=== PATIENT | female | born 2005 | race Hispanic/Latino ===

== ENCOUNTER 2024-02-06 00:02 | Emergency (ER) | payer MEDICAID, OTHER ==
[~2024-02-06] VITALS: Ht 162.6 cm; Wt 100.2 kg
[2024-02-06 00:44] LABS: APPEARANCE,URINE CLEAR (CLEAR); BILIRUBIN,URINE NEGATIVE (NEGATIVE); COLOR,URINE YELLOW (YELLOW); GLUCOSE, URINE (UA) NEGATIVE (NEGATIVE); KETONES,URINE 5 mg/dL (NEGATIVE); LEUKOCYTE ESTERASE ,URINE NEGATIVE Leu/uL (NEGATIVE); NITRATE,URINE NEGATIVE (NEGATIVE); OCCULT BLOOD,URINE NEGATIVE (NEGATIVE); PH,URINE 5.5 (5.0-8.0); PROTEIN,URINE 10 mg/dL (NEGATIVE); UROBILINOGEN,URINE 0.2 mg/dL (0.2-1.0)
[2024-02-06 00:49] LABS: ADD UA MICROSCOPIC YES
[2024-02-06 00:53] LABS: MUCUS,URINE RARE LPF (None Seen); SQUAMOUS EPITHELIAL CELL,UR FEW /HPF (0-2); WBC,URINE 0-1 /HPF (0-1)
[2024-02-06 01:10] LABS: BASOPHILS # (AUTO) 0.02 K/uL (0.00-0.20); BASOPHILS % (AUTO) 0.3 % (0.0-5.0); EOSINOPHILS # (AUTO) 0.04 K/uL (0.00-0.70); EOSINOPHILS % (AUTO) 0.6 % (0.0-8.0); HEMATOCRIT 41.6 % (36-48); IMMATURE GRANULOCYTE ABSOLUTE 0.01 K/uL (0-1); LYMPHOCYTES # (AUTO) 2.1 K/uL (1.0-4.8); LYMPHOCYTES % (AUTO) 32.3 % (21.0-51.0); MEAN CORPUSCULAR HEMOGLOBIN 29.7 pg (27.0-33.0); MEAN CORPUSCULAR HGB CONC 33.7 g/dL (32.0-36.0); MEAN CORPUSCULAR VOLUME 88.3 fL (80-100); MONOCYTES # (AUTO) 0.6 K/uL (0.1-1.0); MONOCYTES % (AUTO) 8.7 % (3.0-13.0); NEUTROPHILS # (AUTO) 3.8 K/uL (1.8-7.7); NEUTROPHILS % (AUTO) 57.9 % (40.0-77.0); PLATELET COUNT (AUTO) 276 K/uL (130-400); RED BLOOD CELL COUNT(AUTO) 4.71 MIL/uL (4.00-5.50); RED CELL DISTRIBUTION WIDTH 12.5 % (11.0-15.5); WHITE BLOOD COUNT (AUTO) 6.5 K/uL (4.8-10.8)
[2024-02-06 01:20] LABS: CREATININE 0.9 mg/dL (0.5-1.0)
[2024-02-06 01:25] LABS: ALBUMIN 3.7 g/dL (3.5-5.0); BILIRUBIN,TOTAL 0.2 mg/dL (0.2-1.0); TOTAL PROTEIN, SERUM 7.8 g/dL (6.0-8.3)
[2024-02-06] MEDS ORDERED: IBUP-1493 PO (02:01)
[2024-02-06] MEDS ORDERED: DICY20TA2 PO (02:01)
[2024-02-06] MEDS ORDERED: OMEP40CA21 PO (02:01)
[2024-02-06 02:03] VITALS: BP 139/70; PULSE 66; RESP 17; O2SAT 98
== END 2024-02-06 02:13 | disposition home or self-care (01) ==
LOC: EDH 00:02
DX: K80.20 Calculus of gallbladder without cholecystitis without obstruction (principal); Z88.0 Allergy status to penicillin
CPT/HCPCS: 36415; 76705; 80053; 81001; 83690; 85025

== ENCOUNTER 2024-04-03 12:33 | Emergency (ER) | payer OTHER ==
[~2024-04-03] VITALS: Ht 167.6 cm; Wt 99.8 kg
[~2024-04-03 12:33] MED LIST: DICY20TA2 PO; IBUP-1493 PO; OMEP40CA21 PO
[2024-04-03 14:58] LABS: APPEARANCE,URINE CLOUDY (CLEAR); BILIRUBIN,URINE NEGATIVE (NEGATIVE); COLOR,URINE YELLOW (YELLOW); GLUCOSE, URINE (UA) NEGATIVE (NEGATIVE); KETONES,URINE NEGATIVE (NEGATIVE); LEUKOCYTE ESTERASE ,URINE 25 Leu/uL (NEGATIVE); NITRATE,URINE NEGATIVE (NEGATIVE); OCCULT BLOOD,URINE NEGATIVE (NEGATIVE); PH,URINE 5.5 (5.0-8.0); PROTEIN,URINE 20 mg/dL (NEGATIVE); UROBILINOGEN,URINE 0.2 mg/dL (0.2-1.0)
[2024-04-03 14:59] LABS: HCG,QUALITATIVE URINE NEGATIVE (NEGATIVE)
[2024-04-03 15:00] LABS: ADD UA MICROSCOPIC YES
[2024-04-03 15:03] LABS: BACTERIA,URINE RARE /HPF (None Seen); MUCUS,URINE FEW LPF (None Seen); SQUAMOUS EPITHELIAL CELL,UR MANY /HPF (0-2)
[2024-04-03 15:18] VITALS: BP 110/65; PULSE 70; RESP 18; O2SAT 98
[2024-04-03] MEDS: ORPHENADRINE CITRATE 30 MG/ML ML IM ONE (15:34)
[2024-04-03] MEDS: KETOROLAC 30MG VIAL (30MG/ML) IM ONE (15:34)
[2024-04-03] MEDS: TRIAMCINOLONE ACETONIDE 40 MG/ML 1ML VIAL IM ONE (15:35)
[2024-04-03] MEDS ORDERED: KETO10TA2 PO (16:00)
[2024-04-03] MEDS ORDERED: SULF1TAB42 PO (16:00)
== END 2024-04-03 16:26 | disposition home or self-care (01) ==
LOC: EDH 12:33
DX: S39.012A Strain of muscle, fascia and tendon of lower back, initial encounter (principal); N39.0 Urinary tract infection, site not specified; Z79.899 Other long term (current) drug therapy; Z88.0 Allergy status to penicillin; X58.XXXA Exposure to other specified factors, initial encounter; Y93.89 Activity, other specified; Y92.89 Other specified places as the place of occurrence of the external cause; Y99.8 Other external cause status
CPT/HCPCS: 99284; 87086; 81001; 81025; 96372 ×3; J3301; J1885; J2360

== ENCOUNTER 2024-09-15 21:28 | Emergency (ER) | payer SELFPAY ==
[~2024-09-15] VITALS: Ht 157.5 cm; Wt 104.3 kg
[~2024-09-15 21:28] MED LIST changes: +KETO10TA2 PO; +SULF1TAB42 PO
--- NOTE | 2024-09-15 21:32 | NUR ---
UA CUP PROVIDED
--- NOTE | 2024-09-15 21:41 | NUR ---
NOTIFIED ABIGAIL PARIKH OF PT NEED FOR ROOM
[2024-09-15 22:12] LABS: BASOPHILS # (AUTO) 0.04 K/uL (0.00-0.20); BASOPHILS % (AUTO) 0.4 % (0.0-5.0); EOSINOPHILS # (AUTO) 0.11 K/uL (0.00-0.70); HEMATOCRIT 40.5 % (36-48); IMMATURE GRANULOCYTE ABSOLUTE 0.04 K/uL (0-1); LYMPHOCYTES # (AUTO) 2.6 K/uL (1.0-4.8); LYMPHOCYTES % (AUTO) 24.6 % (21.0-51.0); MEAN CORPUSCULAR HEMOGLOBIN 28.6 pg (27.0-33.0); MEAN CORPUSCULAR HGB CONC 33.1 g/dL (32.0-36.0); MEAN CORPUSCULAR VOLUME 86.4 fL (80-100); MONOCYTES # (AUTO) 0.6 K/uL (0.1-1.0); MONOCYTES % (AUTO) 5.9 % (3.0-13.0); NEUTROPHILS # (AUTO) 7.2 K/uL (1.8-7.7); NEUTROPHILS % (AUTO) 67.7 % (40.0-77.0); PLATELET COUNT (AUTO) 292 K/uL (130-400); RED BLOOD CELL COUNT(AUTO) 4.69 MIL/uL (4.00-5.50); RED CELL DISTRIBUTION WIDTH 12.2 % (11.0-15.5); WHITE BLOOD COUNT (AUTO) 10.7 K/uL (4.8-10.8)
[2024-09-15 22:13] LABS: APPEARANCE,URINE CLEAR (CLEAR); BILIRUBIN,URINE NEGATIVE (NEGATIVE); COLOR,URINE LIGHT-YELLOW (YELLOW); GLUCOSE, URINE (UA) NEGATIVE (NEGATIVE); KETONES,URINE NEGATIVE (NEGATIVE); LEUKOCYTE ESTERASE ,URINE NEGATIVE Leu/uL (NEGATIVE); NITRATE,URINE NEGATIVE (NEGATIVE); OCCULT BLOOD,URINE NEGATIVE (NEGATIVE); PH,URINE 6.5 (5.0-8.0); PROTEIN,URINE NEGATIVE (NEGATIVE)
[2024-09-15 22:15] LABS: ADD UA MICROSCOPIC YES
[2024-09-15 22:17] LABS: MUCUS,URINE RARE LPF (None Seen); SQUAMOUS EPITHELIAL CELL,UR FEW /HPF (0-2); WBC,URINE 0-1 /HPF (0-1)
[2024-09-15 22:29] LABS: CREATININE 0.7 mg/dL (0.5-1.0); POTASSIUM 3.7 mmol/L (3.5-5.1)
[2024-09-15 22:42] LABS: ALBUMIN 3.5 g/dL (3.5-5.0); BILIRUBIN,TOTAL 0.2 mg/dL (0.2-1.0); TOTAL PROTEIN, SERUM 7.5 g/dL (6.0-8.3)
[2024-09-15] MEDS: LIDOCAINE HCL 2% VISCOUS 15 ML UDCUP PO ONE (23:20)
[2024-09-15] MEDS: FAMOTIDINE 20MG VIAL IV STA (23:20)
[2024-09-15] MEDS: DICYCLOMINE HCL 10 MG/5 ML ML PO ONE (23:20)
[2024-09-15] MEDS: MAG/ALUM/SIMETH 30 ML UDCUP PO ONE (23:20)
[2024-09-15] MEDS: ondanSETRON 4MG INJ IVP STA (23:20)
[2024-09-15] MEDS ORDERED: FAMO-136 PO (23:23)
--- NOTE | 2024-09-15 23:24 | ERN ---
ED Note History of Present Illness Stated Complaint: ABD PAIN, VOMITING Chief Complaint: Abdominal Pain Time Seen by MD: 21:29 Time Seen by Midlevel: 21:33 Dictation: 19-year-old female coming in complaining of nausea vomiting x2 episodes today and epigastric pain. Patient states he was diagnosed with gallstones a while back. LMP 08/10/2024. Denies having any fever, diarrhea, cough, congestion. Denies any medical or surgical history. Allergies: Coded Allergies: Penicillins (Unverified Allergy, Unknown, 02/06/24) amoxicillin (Unverified Allergy, Unknown, 02/06/24) Home Meds Active Scripts Famotidine (Pepcid) 20 Mg Tablet, 1 TAB PO BID for 30 Days, #60 TAB 0 Refills Prov:ELVER LOZA NP 09/15/24 Sulfamethoxazole/Trimethoprim (Bactrim Ds Tablet) 800 Mg-160 Mg Tablet, 1 TAB PO BID for 7 Days, #14 TAB 0 Refills Prov:MAXIMINO REGALADO 04/03/24 Ketorolac Tromethamine (Ketorolac Tromethamine) 10 Mg Tablet, 10 MG PO BID for 5 Days, #10 TAB Prov:MAXIMINO REGALADO 04/03/24 Ibuprofen (Motrin/Advil) 800 Mg Tab, 800 MG PO TID, #30 TAB Prov:ISABEL HAN MD 02/06/24 Omeprazole (Omeprazole) 40 Mg Capsule.dr, 40 MG PO DAILY, #30 CAP Prov:ISABEL HAN MD 02/06/24 Dicyclomine HCl (Bentyl) 20 Mg Tab, 20 MG PO TIDP PRN for PAIN, #60 TAB Prov:ISABEL HAN MD 02/06/24 Past Medical History Past Medical History: Other Additional Past Medical Hx: GALLSTONES Surgical History: None Family History: Negative Social History: Lives with family LMP: Aug 10, 2024 Review of System Dictation Constitutional: Negative for fever,chills, and weight loss Eyes: Negative for injury, pain,redness, and discharge ENT: Negative for injury,pain or swelling Cardiovascular: Negative for chest pain, palpitations, and edema Respiratory: Negative for shortness of breath, cough, and wheezing, Abdomen/GI: Positive for epigastric pain, nausea, vomiting, no diarrhea, and no constipation Back: Negative for injury and pain : Negative for injury, bleeding and discharge MS/Extremity: Negative for injury and deformity Skin: Negative for rash, and discoloration Neuro: Negative for headache, weakness, numbness, tingling, and seizure Psych: Negative for suicide ideation, homicidal ideation, and hallucinations Review of Systems: was completed Initial Vital Sign VS Vital Signs Date Time Temp Pulse Resp B/P (MAP) Pulse Ox O2 Delivery O2 Flow Rate FiO2 09/15/24 21:29 99.5 118 20 167/90 99 Room Air 09/15/24 22:13 0 21 Physical Exam Dictation General: awake, alert, NAD Head/Face: Normocephalic, atraumatic Eyes: PERRL, EOMI, vision at baseline ENT: oral cavity clear, TMs clear, no signs of infection Neck: Trachea midline, supple, no nuchal rigidity Cardiovascular: RRR, normal S1/S2, No MRGs, no JVD Respiratory: CTAB, no respiratory distress, No rales or wheezes Abdomen: Soft, non-tender, non-distended, normal bowel sounds, no guarding or rebound. Skin: Warm, dry, normal turgor, no rash MS/Extremity: Pulses equal, no cyanosis, neurovascular intact, FROM Neuro: COAx4, GCS 15, strength 5/5, CN 2-12 intact, normal cerebellar exam, normal gait, Psych: Normal behavior, mood, and affect normal Results (Laboratory/Radiology) Laboratory/Radiology Laboratory Tests Test 09/15/24 22:00 09/15/24 22:02 Urine Color LIGHT-YELLOW (YELLOW) Urine Appearance CLEAR (CLEAR) Urine pH 6.5 (5.0-8.0) Urine Specific [place] 1.022 (1.001-1.031) Urine Protein NEGATIVE mg/dL (NEGATIVE) Urine Glucose (UA) NEGATIVE mg/dL (NEGATIVE) Urine Ketones NEGATIVE mg/dL (NEGATIVE) Urine Occult Blood NEGATIVE (NEGATIVE) Urine Nitrate NEGATIVE (NEGATIVE) Urine Bilirubin NEGATIVE mg/dL (NEGATIVE) Urine Urobilinogen 2.0 mg/dL (0.2-1.0) H Urine Leukocyte Esterase NEGATIVE Shaista/uL Urine RBC None /HPF (0-1) Urine WBC 0-1 /HPF (0-1) Urine Squamous Epithelial Cells FEW /HPF (0-2) Urine Bacteria None /HPF (None Seen) White Blood Count 10.7 K/uL (4.8-10.8) Red Blood Count 4.69 MIL/uL (4.00-5.50) Hemoglobin 13.4 g/dL (12.0-16.0) Hematocrit 40.5 % (36-48) Mean Corpuscular Volume 86.4 fL (80-100) Mean Corpuscular Hemoglobin 28.6 pg (27.0-33.0) Mean Corpuscular Hemoglobin Concent 33.1 g/dL (32.0-36.0) Red Cell Distribution Width 12.2 % (11.0-15.5) Platelet Count 292 K/uL (130-400) Mean Platelet Volume 9.4 fL (7.5-10.5) Immature Granulocyte % (Auto) 0.4 % (0-1) Neutrophils (%) (Auto) 67.7 % (40.0-77.0) Lymphocytes (%) (Auto) 24.6 % (21.0-51.0) Monocytes (%) (Auto) 5.9 % (3.0-13.0) Eosinophils (%) (Auto) 1.0 % (0.0-8.0) Basophils (%) (Auto) 0.4 % (0.0-5.0) Neutrophils # (Auto) 7.2 K/uL (1.8-7.7) Lymphocytes # (Auto) 2.6 K/uL (1.0-4.8) Monocytes # (Auto) 0.6 K/uL (0.1-1.0) Eosinophils # (Auto) 0.11 K/uL (0.00-0.70) Basophils # (Auto) 0.04 K/uL (0.00-0.20) Absolute Immature Granulocyte (auto 0.04 K/uL (0-1) Nucleated Red Blood Cells 0.0 % (0.0-0.19) Sodium Level 135 mmol/L (136-145) L Potassium Level 3.7 mmol/L (3.5-5.1) Chloride Level 102 mmol/L (101-111) Carbon Dioxide Level 28 mmol/L (21-32) Blood Urea Nitrogen 9 mg/dL (7-18) Creatinine 0.7 mg/dL (0.5-1.0) Glomerular Filtration Rate Calc 126 mL/min (>90) Random Glucose 106 mg/dL (70-105) H Total Calcium 9.4 mg/dL (8.5-10.1) Total Bilirubin 0.2 mg/dL (0.2-1.0) Aspartate Amino Transf (AST/SGOT) 10 U/L (10-37) Alanine Aminotransferase (ALT/SGPT) 21 U/L (12-78) Alkaline Phosphatase 57 U/L (50-136) Total Protein 7.5 g/dL (6.0-8.3) Albumin 3.5 g/dL (3.5-5.0) Human Chorionic Gonadotropin, Quant 0 mIU/mL (0-5) Labs Reviewed?: Yes ED Course ED Course Orders Procedure Category Date Status Time Cbc With Differential LAB 09/15/24 Complete 21:43 Comprehensive LAB 09/15/24 Complete Metabolic Panel 21:43 Urinalysis Profile LAB 09/15/24 Complete 21:43 Hcg,Quantitative LAB 09/15/24 Complete 21:43 Ondansetron 4mg Inj PHA 09/15/24 Complete (Zofran 4mg Inj) 22:52 Famotidine 20mg Vial PHA 09/15/24 Complete (Pepcid 20mg Vial) 22:52 Lidocaine Hcl 2% PHA 09/15/24 Complete Viscous (Lidocaine Hcl 23:00 Mag/Alum/Simeth 30ml PHA 09/15/24 Complete (Maalox Plus 30ml) 23:00 Dicyclomine Hcl PHA 09/15/24 Complete (Bentyl 10mg/5ml 23:00 Current Medications Medications (Trade) Dose Ordered Sig/Alejandro Route PRN Reason Start Time Stop Time Status Last Admin Dose Admin Al Hydroxide/Mg Hydroxide (MAALox PLUS 30ML) 30 ml ONCE ONCE PO 09/15/24 23:00 09/15/24 23:01 DC 09/15/24 23:20 Dicyclomine HCl (Bentyl 10mg/5ml Syrup) 10 mg ONCE ONCE PO 09/15/24 23:00 09/15/24 23:01 DC 09/15/24 23:20 Famotidine (Pepcid 20mg Vial) 20 mg ONCE STAT IV 09/15/24 22:52 09/15/24 22:54 DC 09/15/24 23:20 Lidocaine HCl (Lidocaine HCl 2% Viscous) 10 ml ONCE ONCE PO 09/15/24 23:00 09/15/24 23:01 DC 09/15/24 23:20 Ondansetron HCl (zoFRAN 4MG INJ) 4 mg ONCE STAT IVP 09/15/24 22:52 09/15/24 22:54 DC 09/15/24 23:20 Vital Signs Date Time Temp Pulse Resp B/P (MAP) Pulse Ox O2 Delivery O2 Flow Rate FiO2 09/15/24 23:32 98.8 77 16 132/88 99 Room Air* 0 21 09/15/24 22:13 98.8 75 16 124/49 99 Room Air* 0 21 09/15/24 21:29 99.5 118 20 167/90 99 Room Air Medical Decision Making MDM MDM: 19-year-old female coming in complaining of nausea vomiting x2 episodes today and epigastric pain. Patient states he was diagnosed with gallstones a while back. LMP 08/10/2024. Denies having any fever, diarrhea, cough, congestion. Denies any medical or surgical history.CBC shows no leukocytosis, no anemia, no thrombocytopenia. Chemistry shows hyponatremia, no other electrolyte abnormality. No transaminitis, T bili within normal range. Patient is not . UA shows no evidence of urinary tract infection. Discussed findings with the patient, educated patient to follow up with PCP and or surgeon to have her gallbladder removed or re-evaluated. Patient has verbalized understanding, answered all questions. Differential diagnosis: Gastritis, biliary colic, GERD, Rationale: Tests considered and ordered secondary to shared decision making include: Previous outside records reviewed: Old ER visits. Risk of complication and/or morbidity or mortality of patient management: None Medications-Per medication reconciliation Need for hospitalization: Patient does not meet criteria for hospitalization. Need for emergency major/minor surgery: No There are no social concerns with this patient. Prescription drug management Prescriptions will include symptomatic care Patient's prior external medical records from other ER visits were reviewed by me as indicated. Prior testing and results from previous visits were reviewed. Prior tests were taken into account with medical decision making and resource utilization, independent historian/historians were used to obtain complete medical history. I independently interpreted the test that were performed, results were reviewed by me and considered findings on radiology if ordered. Medical management and examination interpretation discussions were had by me with other qualified healthcare professionals as indicated for the patient's care. DX & DISP Disposition: Discharge Departure Impression: Primary Impression: Biliary colic Condition: Stable Scripts Famotidine (Pepcid) 20 Mg Tablet 1 TAB PO BID for 30 Days, #60 TAB 0 Refills Prov: ELVER LOZA NP 09/15/24 Additional Instructions: Follow up with PCP and or surgeon to re-evaluate your gallbladder. Avoid any greasy, spicy foods. Return to the ER symptoms worsen. Referrals: SELF,REFERRAL (PCP) Time of Disposition: 23:23 I have reviewed the case, and I agree with, Diagnosis and Plan ATTESTATION BY PHYSICIAN I PERFORMED THE SUBSTANTIVE PORTION OF THE VISIT. I HAVE REVIEWED AND PERSONALLY MADE AND APPROVED THE MANAGEMENT PLAN THAT IS DOCUMENTED IN THE NOTE BY MYSELF FOR THE A PP. I ACKNOWLEDGED FOR RESPONSIBILITY FOR THE PATIENT'S MANAGEMENT PLAN. ELVER LOZA NP Sep 15, 2024 23:24 ROSALINO HOWELL MD Sep 16, 2024 06:34
[2024-09-15 23:32] VITALS: BP 132/88; PULSE 77; RESP 16; TEMP 98.7; O2SAT 99
== END 2024-09-15 23:35 | disposition home or self-care (01) ==
LOC: EDH 21:28
DX: K80.50 Calculus of bile duct without cholangitis or cholecystitis without obstruction (principal); R10.2 Pelvic and perineal pain; Z79.1 Long term (current) use of non-steroidal anti-inflammatories (NSAID); Z79.899 Other long term (current) drug therapy; Z88.0 Allergy status to penicillin
CPT/HCPCS: 99284; 96374; 96375; 80053; 84702; 85025; 81001; 36415; J3490; J2405

== ENCOUNTER 2025-04-22 14:06 | Emergency (ER) | payer BC ==
[~2025-04-22] VITALS: Ht 160 cm; Wt 108.9 kg
[~2025-04-22 14:06] MED LIST changes: +FAMO-136 PO
[2025-04-22] MEDS: 0.9%NACL 1000ML 1,000 ML IV ONE (14:36)
[2025-04-22 14:43] LABS: IMMATURE GRANULOCYTE ABSOLUTE 0.06 K/uL (0-1); NUCLEATED RED BLOOD CELLS 0.0 % (0.0-0.19); PLATELET COUNT (AUTO) 316 K/uL (130-400); RED BLOOD CELL COUNT(AUTO) 4.92 MIL/uL (4.00-5.50); RED CELL DISTRIBUTION WIDTH 13.2 % (11.0-15.5); WHITE BLOOD COUNT (AUTO) 13.6 K/uL (4.8-10.8)
--- NOTE | 2025-04-22 14:44 | EKG ---
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
[2025-04-22 14:48] LABS: ADD UA MICROSCOPIC YES; APPEARANCE,URINE CLOUDY (CLEAR); GLUCOSE, URINE (UA) NEGATIVE (NEGATIVE); LEUKOCYTE ESTERASE ,URINE 75 Leu/uL (NEGATIVE); NITRATE,URINE NEGATIVE (NEGATIVE); OCCULT BLOOD,URINE NEGATIVE (NEGATIVE)
[2025-04-22 14:57] LABS: CREATININE 0.7 mg/dL (0.5-1.0); GLOMERULAR FILTR. RATE CALC 126.0 mL/min (>90); GLUCOSE,RANDOM 96.0 mg/dL (70-105); SODIUM SERUM 142.0 mmol/L (136-145); UREA NITROGEN, BLOOD 8.0 mg/dL (7-18)
[2025-04-22 14:58] LABS: HCG,QUALITATIVE URINE NEGATIVE (NEGATIVE)
[2025-04-22 15:02] LABS: OTHER CASTS, URINE 1 /LPF (None Seen); SQUAMOUS EPITHELIAL CELL,UR MOD /HPF (0-2)
[2025-04-22 15:08] LABS: ASPARTATE AMINOTRANSFERASE 19.0 U/L (10-37); TOTAL PROTEIN, SERUM 8.3 g/dL (6.0-8.3)
--- NOTE | 2025-04-22 15:53 | ERN ---
ED Note History of Present Illness Stated Complaint: VOMITING, NAUSEA, FAINTING Chief Complaint: Dizzy/Light Headed Time Seen by MD: 14:15 Dictation: 19-year-old female presenting to the emergency department with generalized weakness patient had episode of syncope yesterday nausea vomiting but none today. No chest pain or shortness of breath. Patient has a no medical problems. Allergies: Coded Allergies: Penicillins (Unverified Allergy, Unknown, 02/06/24) amoxicillin (Unverified Allergy, Unknown, 02/06/24) Home Meds Active Scripts Famotidine (Pepcid) 20 Mg Tablet, 1 TAB PO BID for 30 Days, #60 TAB 0 Refills Prov:ELVER LOZA NP 09/15/24 Sulfamethoxazole/Trimethoprim (Bactrim Ds Tablet) 800 Mg-160 Mg Tablet, 1 TAB PO BID for 7 Days, #14 TAB 0 Refills Prov:MAXIMINO REGALADO 04/03/24 Ketorolac Tromethamine (Ketorolac Tromethamine) 10 Mg Tablet, 10 MG PO BID for 5 Days, #10 TAB Prov:MAXIMINO REGALADO 04/03/24 Ibuprofen (Motrin/Advil) 800 Mg Tab, 800 MG PO TID, #30 TAB Prov:ISABEL HAN MD 02/06/24 Omeprazole (Omeprazole) 40 Mg Capsule.dr, 40 MG PO DAILY, #30 CAP Prov:ISABEL HAN MD 02/06/24 Dicyclomine HCl (Bentyl) 20 Mg Tab, 20 MG PO TIDP PRN for PAIN, #60 TAB Prov:ISABEL HAN MD 02/06/24 Past Medical History Past Medical History: Gallstones Additional Past Medical Hx: GALLSTONES Surgical History: None Family History: Negative Social History: Lives with family LMP: February 28, 2025 Review of System Dictation Constitutional: Negative for fever,chills, and weight loss Eyes: Negative for injury, pain,redness, and discharge ENT: Negative for injury,pain or swelling Cardiovascular: Negative for chest pain, palpitations, and edema Respiratory: Negative for shortness of breath, cough, and wheezing, Abdomen/GI: Per HPI Back: Negative for injury and pain : Negative for injury, bleeding and discharge MS/Extremity: Negative for injury and deformity Skin: Negative for rash, and discoloration Neuro: Per HPI Initial Vital Sign VS Vital Signs Date Time Temp Pulse Resp B/P (MAP) Pulse Ox O2 Delivery O2 Flow Rate FiO2 04/22/25 14:12 98.6 115 16 139/84 99 Room Air 0 04/22/25 14:40 21 Physical Exam Dictation General: awake, alert, NAD Head/Face: Normocephalic, atraumatic Eyes: PERRL, EOMI, vision at baseline ENT: oral cavity clear, TMs clear, no signs of infection Neck: Trachea midline, supple, no nuchal rigidity Cardiovascular: RRR, normal S1/S2, No MRGs, no JVD Respiratory: CTAB, no respiratory distress, No rales or wheezes Abdomen: Soft, non-tender, non-distended, normal bowel sounds, no guarding or rebound. Skin: Warm, dry, normal turgor, no rash MS/Extremity: Pulses equal, no cyanosis, neurovascular intact, FROM Neuro: COAx4, GCS 15, strength 5/5, CN 2-12 intact, normal cerebellar exam, normal gait, Psych: Normal behavior, mood, and affect normal Results (Laboratory/Radiology) Laboratory/Radiology Laboratory Tests Test 04/22/25 14:31 White Blood Count 13.6 K/uL (4.8-10.8) H Red Blood Count 4.92 MIL/uL (4.00-5.50) Hemoglobin 13.5 g/dL (12.0-16.0) Hematocrit 41.6 % (36-48) Mean Corpuscular Volume 84.6 fL (80-100) Mean Corpuscular Hemoglobin 27.4 pg (27.0-33.0) Mean Corpuscular Hemoglobin Concent 32.5 g/dL (32.0-36.0) Red Cell Distribution Width 13.2 % (11.0-15.5) Platelet Count 316 K/uL (130-400) Mean Platelet Volume 9.5 fL (7.5-10.5) Immature Granulocyte % (Auto) 0.4 % (0-1) Neutrophils (%) (Auto) 81.8 % (40.0-77.0) H Lymphocytes (%) (Auto) 12.8 % (21.0-51.0) L Monocytes (%) (Auto) 4.6 % (3.0-13.0) Eosinophils (%) (Auto) 0.2 % (0.0-8.0) Basophils (%) (Auto) 0.2 % (0.0-5.0) Neutrophils # (Auto) 11.1 K/uL (1.8-7.7) H Lymphocytes # (Auto) 1.7 K/uL (1.0-4.8) Monocytes # (Auto) 0.6 K/uL (0.1-1.0) Eosinophils # (Auto) 0.03 K/uL (0.00-0.70) Basophils # (Auto) 0.03 K/uL (0.00-0.20) Absolute Immature Granulocyte (auto 0.06 K/uL (0-1) Nucleated Red Blood Cells 0.0 % (0.0-0.19) Urine Color YELLOW (YELLOW) Urine Appearance CLOUDY (CLEAR) H Urine pH 6.0 (5.0-8.0) Urine Specific [place] 1.031 (1.001-1.031) Urine Protein 30 mg/dL (NEGATIVE) H Urine Glucose (UA) NEGATIVE mg/dL (NEGATIVE) Urine Ketones NEGATIVE mg/dL (NEGATIVE) Urine Occult Blood NEGATIVE (NEGATIVE) Urine Nitrate NEGATIVE (NEGATIVE) Urine Bilirubin NEGATIVE mg/dL (NEGATIVE) Urine Urobilinogen 2.0 mg/dL (0.2-1.0) H Urine Leukocyte Esterase 75 Shaista/uL (NEGATIVE) H Urine RBC 2-5 /HPF (0-1) H Urine WBC 6-10 /HPF (0-1) H Urine Squamous Epithelial Cells MOD /HPF (0-2) Urine Bacteria RARE /HPF (None Seen) Urine Other Casts 1 /LPF (None Seen) Urine HCG, Qualitative NEGATIVE (NEGATIVE) Sodium Level 142 mmol/L (136-145) Potassium Level 4.1 mmol/L (3.5-5.1) Chloride Level 105 mmol/L (101-111) Carbon Dioxide Level 27 mmol/L (21-32) Blood Urea Nitrogen 8 mg/dL (7-18) Creatinine 0.7 mg/dL (0.5-1.0) Glomerular Filtration Rate Calc 126 mL/min (>90) Random Glucose 96 mg/dL (70-105) Total Calcium 9.3 mg/dL (8.5-10.1) Total Bilirubin 0.7 mg/dL (0.2-1.0) Direct Bilirubin 0.1 mg/dL (0.0-0.3) Aspartate Amino Transf (AST/SGOT) 19 U/L (10-37) Alanine Aminotransferase (ALT/SGPT) 26 U/L (12-78) Alkaline Phosphatase 66 U/L (50-136) Total Protein 8.3 g/dL (6.0-8.3) Albumin 3.7 g/dL (3.5-5.0) Labs Reviewed?: Yes EKG Comment: EKG reviewed and interpreted by me heart rate 97 normal sinus rhythm normal intervals. ED Course ED Course Orders Procedure Category Date Status Time 12 Lead Ekg Tracing- EKG 04/22/25 Complete Technical 14:21 Basic Metabolic Panel LAB 04/22/25 Complete 14:21 Cbc With Differential LAB 04/22/25 Complete 14:21 Hepatic Function Panel LAB 04/22/25 Complete 14:21 ,Urine Test LAB 04/22/25 Complete 14:21 Urinalysis Profile LAB 04/22/25 Complete 14:21 Ondansetron 4mg Inj PHA 04/22/25 Complete (Zofran 4mg Inj) 14:30 0.9%Nacl 1000ml (Ns PHA 04/22/25 Complete 1000ml) 14:30 Culture Urine ADIN 04/22/25 In Process 14:48 Current Medications Medications (Trade) Dose Ordered Sig/Alejandro Route PRN Reason Start Time Stop Time Status Last Admin Dose Admin Ondansetron HCl (zoFRAN 4MG INJ) 4 mg ONCE ONCE IVP 04/22/25 14:30 04/22/25 14:31 DC 04/22/25 14:36 Sodium Chloride 1,000 ml @ 0 mls/hr ONCE ONCE IV 04/22/25 14:30 04/22/25 14:31 DC 04/22/25 14:36 Vital Signs Date Time Temp Pulse Resp B/P (MAP) Pulse Ox O2 Delivery O2 Flow Rate FiO2 04/22/25 14:40 98.2 112 16 140/82 98 Room Air* 0 21 04/22/25 14:12 98.6 115 16 139/84 99 Room Air 0 Medical Decision Making MDM MDM: Differential diagnosis: Rationale: Tests considered and ordered secondary to shared decision making include: Previous outside records reviewed: Old ER visits. Risk of complication and/or morbidity or mortality of patient management: None Medications-Per medication reconciliation Need for hospitalization: Patient does not meet criteria for hospitalization. Need for emergency major/minor surgery: No There are no social concerns with this patient. Prescription drug management Prescriptions will include symptomatic care Patient's prior external medical records from other ER visits were reviewed by me as indicated. Prior testing and results from previous visits were reviewed. Prior tests were taken into account with medical decision making and resource utilization, independent historian/historians were used to obtain complete medical history. I independently interpreted the test that were performed, results were reviewed by me and considered findings on radiology if ordered. Medical management and examination interpretation discussions were had by me with other qualified healthcare professionals as indicated for the patient's care. DX & DISP Disposition: Discharge Departure Impression: Primary Impression: Syncope Condition: Stable Referrals: SELF,REFERRAL (PCP) DARLINE GIBBS MD Apr 22, 2025 15:52
[2025-04-22 15:54] VITALS: BP 140/80; PULSE 95; RESP 16; TEMP 98.3; O2SAT 98
== END 2025-04-22 16:00 | disposition home or self-care (01) ==
LOC: EDH 14:06
DX: R55 Syncope and collapse (principal); Z79.1 Long term (current) use of non-steroidal anti-inflammatories (NSAID); Z79.899 Other long term (current) drug therapy; Z88.0 Allergy status to penicillin
CPT/HCPCS: 99284; 96374; 96361; 80076; 80048; 85025; 87086; 81001; 81025; 36415; 93005; J7030; J2405